=== PATIENT | male | born 1970 | race Caucasian/White ===

== ENCOUNTER 2019-09-06 08:34 | Day surgery (SDC) | payer OTHER ==
[2019-09-04 12:35] VITALS: BMI 27.1
[2019-09-06] MEDS ORDERED: ROPIVACAINE HCL 0.5% 30ML VIAL ONE (10:47)
[2019-09-06] MEDS ORDERED: MIDAZOLAM HCL 2 MG/2 ML SINGLE DOSE VIAL ONE (10:47)
[2019-09-06] MEDS ORDERED: PROPOFOL 20 ML ONE ×2 (11:22)
[2019-09-06] MEDS ORDERED: SODIUM CHLORIDE 0.9% P/F 10 ML VIAL IJ ONE (11:24)
[2019-09-06] MEDS ORDERED: LIDOCAINE HCL/PF 2% SDV 5ML VIAL ONE (11:24)
[2019-09-06] MEDS ORDERED: ceFAZolin SODIUM 1 GM VIAL ONE (11:42)
[2019-09-06] MEDS ORDERED: EPHEDRINE SULFATE/0.9% NACL/PF 50 MG/10 ML SYRINGE NR ONE (11:50)
[2019-09-06] MEDS ORDERED: KETOROLAC TROMETHAMINE 30 MG/1 ML VIAL ONE (11:51)
[2019-09-06] MEDS ORDERED: DEXAMETHASONE SOD PHOSPHATE 4 MG/1 ML VIAL ONE (11:51)
[2019-09-06] MEDS ORDERED: ONDANSETRON 4 MG/2 ML VIAL ONE (11:51)
[2019-09-06] MEDS ORDERED: oxyCODONE HCL 5 MG TABLET PO PRN ×2 (13:14)
[2019-09-06] MEDS ORDERED: ONDANSETRON 4 MG/2 ML VIAL IVPUSH PRN (13:14)
[2019-09-06] MEDS ORDERED: LACTATED RINGERS SOLUTION 1,000 ML IV SCH (13:15)
[2019-09-06 15:42] VITALS: BP 135/77; PULSE 90; TEMP 98.7
--- NOTE | 2019-09-07 09:48 | OP ---
DATE OF OPERATION: 09/06/2019 SURGEON: Sidra Thomas MD [employer] TECHNICIAN: YOVANNY Wilde PREOPERATIVE DIAGNOSES: 1. Left shoulder posterior dislocation. 2. Left shoulder instability. 3. Left shoulder cartilage injury, glenohumeral joint. POSTOPERATIVE DIAGNOSES: 1. Left shoulder posterior dislocation. 2. Left shoulder instability. 3. Left shoulder cartilage injury, glenohumeral joint. PROCEDURE: 1. Left shoulder open reduction of posterior dislocation. 2. Left shoulder arthroscopy with anterior and posterior labral repair with capsulorrhaphy. 3. Left shoulder arthroscopy with debridement. ANESTHESIA: Block with general anesthesia. FINDINGS: 1. Posterior dislocation with impingement of the reverse Hill-Sachs on the posterior glenoid. 2. Anterior and posterior labral tearing. 3. Superior labral tear anterior, posterior, type I. 4. Anterior cartilage injury, grade II to III, anterior rim and posterior rim. 5. Large reverse Hill-Sachs lesion, anterior humeral head. 6. Partial supraspinatus tear 15%. 7. Thickened scar tissue, subacromial space. DESCRIPTION OF PROCEDURE: Informed consent was obtained. Patient was taken to the operating room where the left upper extremity was prepped and draped in a sterile fashion. Using standard arthroscopic technique, a posterior incision portal was made which allowed for entry of the camera into the glenohumeral joint. Under direct vision, anterior incision portal was made. Due to the impaction of the humeral head on the posterior glenoid, visualization was performed to allow for reduction of the posterior dislocation. Excessive scar tissue and synovitis were noted throughout the joint, with multiple areas of loose cartilage from the damage to the anterior humeral head. This was debrided with a shaver, removing all the portions. Low-setting Bovie was used on the area of synovium to decrease the synovitis and allow for better visualization. Two anterior portals were made, and anchors were placed at the 3:30 and 2 o'clock positions. Simple suture was placed around the anterior labrum to replace the labrum but not to close down the anterior capsule. Camera was then taken to the anterior portal, and 2 posterior portals were maintained. Reduction of the posterior labrum as well as posterior capsule was reduced with 2 anchors at the 4:30 and 2:30 o'clock positions with combination of mattress and simple sutures, reducing the posterior tissue to the posterior glenoid. All areas of the glenohumeral joint were once again examined. Debridement of loose tissue was performed and removal of all loose bodies. Posterior portal was then redirected to subacromial space and lateral incision portal was made. Visualization of the rotator cuff showed a partial tear from the undersurface of the supraspinatus but was found not to be full thickness. Shoulder was drained. Patient was placed into a sling, transferred to the recovery room without complication. The PA listed above was present and assisted at surgery. Their presence was absolutely medically necessary for the completion of the procedure. They helped hold the arthroscopy, pass instruments (and implants when indicated) and the procedure could not have been completed without their assistance. SIDRA THOMAS M.D. [id number]
== END 2019-09-06 16:03 | disposition home or self-care (01) ==
LOC: FASU 08:34
PROVIDERS: ATTEND Orthopaedic Surgery
PROC: 0MM24ZZ Reattachment of Left Shoulder Bursa and Ligament, Percutaneous Endoscopic Approach (ICD-10-PCS; 2019-09-06)
PROC: 0RBK4ZZ Excision of Left Shoulder Joint, Percutaneous Endoscopic Approach (ICD-10-PCS; 2019-09-06)
PROC: 0RQK0ZZ Repair Left Shoulder Joint, Open Approach (ICD-10-PCS; principal; 2019-09-06 11:59)
DX: S43.085A Other dislocation of left shoulder joint, initial encounter (principal); S43.432A Superior glenoid labrum lesion of left shoulder, initial encounter; X58.XXXA Exposure to other specified factors, initial encounter; Y93.9 Activity, unspecified; Y92.9 Unspecified place or not applicable; M25.312 Other instability, left shoulder; M75.112 Incomplete rotator cuff tear or rupture of left shoulder, not specified as traumatic
CPT/HCPCS: 94760

== ENCOUNTER 2022-12-22 11:09 | Day surgery (SDC) | payer OTHER ==
[2022-12-19 14:06] VITALS: BMI 29.1
[2022-12-22] MEDS ORDERED: ONDANSETRON 4 MG/2 ML VIAL IVPUSH PRN (12:03)
[2022-12-22] MEDS ORDERED: oxyCODONE HCL 5 MG TABLET PO PRN (12:03)
[2022-12-22] MEDS ORDERED: LACTATED RINGERS SOLUTION 1,000 ML IV SCH (12:15)
[2022-12-22] MEDS ORDERED: BUPIVACAINE HCL/PF 2.5 MG/ML - 30 ML VIAL IJ ONE (13:28)
[2022-12-22] MEDS ORDERED: MIDAZOLAM HCL 2 MG/2 ML SINGLE DOSE VIAL ONE (13:32)
[2022-12-22] MEDS ORDERED: ACETAMINOPHEN INJECTION 100 ML IVPB ONE (13:32)
[2022-12-22] MEDS ORDERED: PROPOFOL 20 ML ONE (13:45)
[2022-12-22] MEDS ORDERED: SUCCINYLCHOLINE CHLORIDE 200 MG/10 ML SYRINGE ONE (13:56)
[2022-12-22 17:11] VITALS: RESP 20; TEMP 97.8
[2022-12-22 17:18] VITALS: BP 128/84; PULSE 68
== END 2022-12-22 16:30 | disposition home or self-care (01) ==
LOC: FASU 11:09
PROVIDERS: ATTEND Orthopaedic Surgery
PROC: 0SBC4ZZ Excision of Right Knee Joint, Percutaneous Endoscopic Approach (ICD-10-PCS; 2022-12-22)
PROC: 0SBC4ZZ Excision of Right Knee Joint, Percutaneous Endoscopic Approach (ICD-10-PCS; principal; 2022-12-22 14:14)
DX: S83.241A Other tear of medial meniscus, current injury, right knee, initial encounter (principal); M65.861 Other synovitis and tenosynovitis, right lower leg; S83.8X1A Sprain of other specified parts of right knee, initial encounter; X58.XXXA Exposure to other specified factors, initial encounter; Y92.9 Unspecified place or not applicable; Y93.9 Activity, unspecified
CPT/HCPCS: 94760